=== PATIENT | female | born 1935 | race Caucasian/White ===

== ENCOUNTER 2016-06-01 11:22 | Day surgery (SDC) | payer MEDICARE, BC ==
--- NOTE | ~2016-06-01 | EGD ---
EGD REPORT [facility] [address] [id number] NAME: SHANNAN TOBIAS : 37 STATUS : REG [facility]#: [id number] AGE: 81 ADM/REG DATE : 06/01/16 MR#: [id number] REPORT SERV DATE: 06/01/16 DICTATED BY: BALAJI BILLS DATE: 06/01/16 REPORT STATUS : Draft [facility]ANS[facility] BY: [facility] DATE: 06/01/16 [facility] Patient Name: Shannan Tobias Date of : 1935 Attending MD: BALAJI BILLS MD Procedure Date No Time: 06/01/2016 Procedure: Colonoscopy Indications: Surveillance: Personal history of adenomatous polyps on last colonoscopy 3 years ago Referring MD: JAMILA OLIVAREZ Medicines: Propofol per Anesthesia Complications: No immediate complications. Procedure: Pre-Anesthesia Assessment: - ASA Grade Assessment: III - A patient with severe systemic disease. After I obtained informed consent, the scope was passed under direct vision. Throughout the procedure, the patient's blood pressure, pulse, and oxygen saturations were monitored continuously. The CF [id number] was introduced through the anus and advanced to the cecum, identified by appendiceal orifice and ileocecal valve. The colonoscopy was performed without difficulty. The patient tolerated the procedure well. The quality of the bowel preparation was good. Findings: The perianal and digital rectal examinations were normal. The colon (entire examined portion) appeared normal. Multiple small and large-mouthed diverticula were found in the recto-sigmoid colon, in the sigmoid colon and in the descending colon. Non-bleeding internal hemorrhoids were found during retroflexion and were mild, small and Grade I (internal hemorrhoids that do not prolapse). Impression: - The entire examined colon is normal. - Diverticulosis in the recto-sigmoid colon, in the sigmoid colon and in the descending colon. - Non-bleeding internal hemorrhoids. Recommendation: - Patient has a contact number available for emergencies. The signs and symptoms of potential delayed complications were discussed with the patient. Return to normal activities tomorrow. Written discharge instructions were provided to the patient. - Return to previous diet. - Continue present medications. EGD REPORT [address] [address] NAME: SHANNAN TOBIAS : 37 STATUS : REG [facility] [place] PAT#: [id number] AGE: 81 ADM/REG DATE : 06/01/16 MR#: [id number] REPORT SERV DATE: 06/01/16 DICTATED BY: BALAJI BILLS DATE: 06/01/16 REPORT STATUS : Draft TRANSCRIBED BY: [employer] DATE: 06/01/16 - Repeat colonoscopy in 5 years for surveillance. - Return to my office as previously scheduled. - Discharge patient to home. Procedure Code(s): --- Professional --- G0105, Colorectal cancer screening; colonoscopy on individual at high risk Diagnosis Code(s): --- Professional --- K64.0, First degree hemorrhoids K57.30, Diverticulosis of large intestine without perforation or abscess without bleeding Z86.010, Personal history of colonic polyps CPT copyright 2013 [employer] [employer]. All rights reserved. The codes documented in this report are preliminary and upon shampooer review may be revised to meet current compliance requirements. Balaji Bills MD BALAJI BILLS MD 06/01/2016 2:37 PM This report has been signed electronically. Number of Addenda: 0 Note Initiated On: 06/01/2016 1:58 PM Scope Withdrawal Time 0 hours 14 minutes 37 seconds [id number] [id number]
[~2016-06-01 11:22] MED LIST: ASAB PO; ATEN25 PO; BENTYL10 PO; BETAMETHASONE PO; BIOTIN PO; CITRACAL PO; CYMBALTA60 PO; FISH OIL1200 MG PO; HYDROCHLOROT12.5 MG PO; LIPITOR20 PO; NEUR300 PO; NORCO1 TAB PO; PLAVIX PO; POT GLUCONAT2.5 MEQ PO; POT GLUCONAT550 M1 PO; POT GLUCONAT595 M1 OR; PRILOSEC40 MG PO; ULTRACET PO; VASOTEC10 PO; VITAMIN B-121000 MC1 SL; VITAMIN D31000 UNIT PO; ZOFRAN4 PO
== END 2016-06-01 23:59 | disposition home or self-care (01) ==
LOC: DMU 11:22
PROVIDERS: Internal Medicine Gastroenterology
PROC: 0DJD8ZZ Inspection of Lower Intestinal Tract, Via Natural or Artificial Opening Endoscopic (ICD-10-PCS; principal; 2016-06-01 11:00)
DX: K64.0 First degree hemorrhoids (principal); K57.30 Diverticulosis of large intestine without perforation or abscess without bleeding; I10 Essential (primary) hypertension; K21.9 Gastro-esophageal reflux disease without esophagitis; I73.9 Peripheral vascular disease, unspecified; E78.00 Pure hypercholesterolemia, unspecified; I25.10 Atherosclerotic heart disease of native coronary artery without angina pectoris; M19.90 Unspecified osteoarthritis, unspecified site; Z95.5 Presence of coronary angioplasty implant and graft; Z86.010 Personal history of colon polyps; Z88.5 Allergy status to narcotic agent; Z98.51 Tubal ligation status; Z90.49 Acquired absence of other specified parts of digestive tract